=== PATIENT | female | born 1970 | race Caucasian/White ===

== ENCOUNTER → 2018-07-24 | Outpatient (CLI) | payer BC ==
--- NOTE | 2018-07-24 13:52 | US ---
EXAMINATION TYPE: US pelvis complete transvag DATE OF EXAM: 07/24/2018 COMPARISON: NONE CLINICAL HISTORY: Dysfunctional uterine bleeding N93.8. DUB TECHNIQUE: Transvaginal (TV) and Transabdominal (TA) . Transabdominal sonographic images of the pel vis were acquired. Transvaginal sonographic images were medically necessary to better assess the fol lowing anatomy: uterus and ovaries Date of LMP: 07/24/18 EXAM MEASUREMENTS: Uterus: 8.4 x 4.4 x 4.8 cm Endometrial Stripe: 1.1 cm Right Ovary: unable to visualize Left Ovary: 3.3 x 1.9 x 2.7 cm 1. Uterus: Anteverted heterogeneous. multiple Nabothian cysts. Hypoechoic areas noted (fibroids) a t fundus = 0.9 x 1.3 x 1.0cm and posterior body = 1.4 x 1.2 x 1.0cm 2. Endometrium: appears wnl 3. Right Ovary: Obscured by overlying bowel gas 4. Left Ovary: dominant follicle = 1.6cm 5. Bilateral Adnexa: appears wnl 6. Posterior cul-de-sac: appears wnl IMPRESSION: 1. Leiomyomatous change of the uterus. 2. Dominant follicle left ovary.
== END ==
LOC: RADUSWWP 13:06
PROVIDERS: ATTEND Specialist
DX: D25.9 Leiomyoma of uterus, unspecified (principal)
CPT/HCPCS: 76830; 76856

== ENCOUNTER → 2018-08-05 | Outpatient (CLI) | payer BC ==
--- NOTE | 2018-08-06 09:30 | MM ---
Reason for exam: screening (asymptomatic). Last mammogram was performed 1 year and 1 month ago. History: Benign excisional biopsy of the left breast, 2012. Physical Findings: A clinical breast exam by your physician is recommended on an annual basis and results should be correlated with mammographic findings. MG 3D Screening Mammo W/Cad Bilateral CC and MLO view(s) were taken. Prior study comparison: July 17, 2017, mammogram, performed at [facility]. June 17, 2015, mammogram, performed at [facility]. October 20, 2014, mammogram, performed at [facility]. April 06, 2014, mammogram, performed at [facility]. March 31, 2014, mammogram, performed at [facility]. The breast tissue is extremely dense which could obscure a lesion on mammography. Finding #1: There are circumscribed round masses up to 37mm in the posterior middle position of both breasts, greater in the left breast in size and number. Finding #2: There are typically benign round calcifications in both breasts. New finding and increase in size since July 17, 2017. ASSESSMENT: Incomplete: need additional imaging evaluation, BI-RAD 0 RECOMMENDATION: Ultrasound of both breasts. [facility] will attempt to contact patient to return for ultrasound.
== END ==
LOC: RADMAMWWP 09:06
PROVIDERS: ATTEND Specialist
DX: Z12.31 Encounter for screening mammogram for malignant neoplasm of breast (principal)
CPT/HCPCS: 77063; 77067

== ENCOUNTER → 2018-08-08 | Outpatient (CLI) | payer BC ==
--- NOTE | 2018-08-08 09:40 | USB ---
Reason for exam: clinical finding. History: Benign excisional biopsy of the left breast, 2012. Indicated problem(s): palpable abnormality in both breasts. Physical Findings: Nurse Summary: left 3cm moves, right 1 cm moves (nurse dw). US Breast Workup [facility] Right limited breast ultrasound including focal area of concern, retroareolar and axilla demonstrates multiple thin walled cysts visualized. Overall fibrocystic changes. Left limited breast ultrasound including focal area of concern, retroareolar and axilla demonstrates multiple thin walled cysts visualized. Overall fibrocystic changes. These results were verbally communicated with the patient and result sheet given to the patient on 07/2818. ASSESSMENT: Benign, BI-RAD 2 RECOMMENDATION: Return to routine screening mammogram schedule for both breasts.
== END | disposition home or self-care (01) ==
LOC: RADUSWWP 08:23
PROVIDERS: ATTEND Specialist
DX: R92.8 Other abnormal and inconclusive findings on diagnostic imaging of breast (principal)

== ENCOUNTER → 2018-08-09 | Outpatient (CLI) | payer BC ==
--- NOTE | 2018-08-09 21:15 | BD ---
EXAMINATION TYPE: Axial Bone Density DATE OF EXAM: 08/09/2018 COMPARISON: NONE CLINICAL HISTORY: 47 YR OLD FEMALE....ICD-10 CODE: Z13.9 OSTEOPOROSIS SCREENING : DENIES Height: 66 Weight: 181 FRAX RISK QUESTIONS: 3. Menopause before 45: NA....LMP 2 WEEKS AGO ADRENAL INSUFFICIENCY RISK FACTORS HISTORY OF: HX OF LT WRIST FX History of Wrist Fracture: LT...IN HER TEENS Active: YES Postmenopausal woman: LMP 2 WEEKS AGO Adrenal Insufficiency: ADRENAL FATIGUE MEDICATIONS: Additional Medications: ZOLOFT, VIT D, MULTIVITAMIN Additional History: NOTHING ADDITIONAL TO ADD EXAM MEASUREMENTS: Bone mineral densitometry was performed using the [employer] System. Bone mineral density as measured about the Lumbar spine is: ----- L1-L4(G/cm2): 1.354 T Score Values are as follows: ----- L1: 0.6 ----- L2: 1.2 ----- L3: 1.7 ----- L4: 1.8 ----- L1-L4: 1.4 Bone mineral density BASELINE STUDY Bone mineral density about the R hip (g/cm2): 1.089 Bone mineral density about the L hip (g/cm2): 1.055 T Score values are as follows: -----R Neck: 0.2 -----L Neck: 0.1 -----R Total: 0.6 -----L Total: 0.4 Bone mineral density IS A BASELINE STUDY FRAX%s: THERE IS A 3.0% CHANCE FOR A MAJOR OSTEOPOROTIC FX AND A 0.0% FOR HIP FX....PROBABILITY OF FX IN 10 YRS TIME IMPRESSION: Normal (Values between +1 and -1 indicate normal bone mass). Consider repeating this study in 5 year s or sooner if there is some new clinical indication. NOTE: T-SCORE=SD OF THE YOUNG ADULT MEAN.
== END ==
LOC: RADMAMWWP 07:20
PROVIDERS: ATTEND Specialist
DX: Z13.820 Encounter for screening for osteoporosis (principal)
CPT/HCPCS: 77080

== ENCOUNTER → 2019-06-27 | Outpatient (CLI) | payer BC ==
--- NOTE | 2019-06-27 08:54 | NM ---
EXAMINATION TYPE: NM hepatobiliary w CCK DATE OF EXAM: 06/27/2019 COMPARISON: NONE HISTORY: Right upper quadrant abdominal pain TECHNIQUE: After the intravenous administration of 4.7 mCi Tc 99m Mebrofenin hepatobiliary scintigrap hy is performed. Immediate images post injection. FINDINGS: There is satisfactory initial accumulation of tracer by the liver. The gallbladder is visualized wit hin 36 minutes. The small bowel activity is noted within 10 minutes. At one hour CCK was administer ed, patient was injected with 1.5 mcg of Kinevac, and gallbladder ejection fraction is calculated at 86 %, abnormally elevated. Therefore there is no scintigraphic evidence of cystic or common bile ilir t obstruction to suggest acute cholecystitis or gallbladder dyskinesia. IMPRESSION: Biliary hyperkinesia. Abnormally elevated biliary ejection fraction of 86%.
== END | disposition home or self-care (01) ==
LOC: RADNMMAIN 06:47
PROVIDERS: ATTEND Family Medicine
DX: R94.5 Abnormal results of liver function studies (principal); R10.11 Right upper quadrant pain
CPT/HCPCS: 78227; A9537; J2805

== ENCOUNTER → 2020-03-11 | Outpatient (CLI) | payer BC ==
--- NOTE | 2020-03-12 09:08 | MM ---
Reason for exam: screening (asymptomatic). Last mammogram was performed 1 year and 7 months ago. History: Benign excisional biopsy of the left breast, 2013. Taking progesterone beginning at age 49. Physical Findings: A clinical breast exam by your physician is recommended on an annual basis and results should be correlated with mammographic findings. MG 3D Screening Mammo W/Cad Bilateral CC and MLO view(s) were taken. Prior study comparison: August 05, 2018, bilateral MG 3d screening mammo w/cad. July 17, 2017, mammogram, performed at [facility]. The breast tissue is extremely dense which could obscure a lesion on mammography. Finding #1: There is a typically benign equal density (isodense), circumscribed, partially obscured round mass located 6 cm from the nipple. Finding #2: There are typically benign round, diffuse/scattered calcifications in the right breast. New finding since August 05, 2018 and July 17, 2017. ASSESSMENT: Incomplete: need additional imaging evaluation, BI-RAD 0 RECOMMENDATION: Special view mammogram of the right breast. If lesion persists on supplemental views, image directed ultrasound is recommended. [facility] will attempt to contact patient to return for supplemental views and ultrasound if indicated.
== END | disposition home or self-care (01) ==
LOC: RADMAMWWP 07:02
PROVIDERS: ATTEND Specialist
DX: Z12.31 Encounter for screening mammogram for malignant neoplasm of breast (principal)
CPT/HCPCS: 77063; 77067

== ENCOUNTER → 2020-03-16 | Outpatient (CLI) | payer BC ==
--- NOTE | 2020-03-16 10:35 | MM ---
Reason for exam: additional evaluation requested from abnormal screening. Last mammogram was performed less than 1 month ago. History: Benign excisional biopsy of the left breast, 2012. Taking progesterone beginning at age 49. Physical Findings: Nurse Summary: 1cm nodule in the right breast at 12 o'clock and a 2cm nodule in the left breast at 2 o'clock (nurse mj). MG 3D Work Up W/Cad RT LM and spot compression MLO view(s) were taken of the right breast. Prior study comparison: March 11, 2020, bilateral MG 3d screening mammo w/cad. August 05, 2018, bilateral MG 3d screening mammo w/cad. The breast tissue is extremely dense which could obscure a lesion on mammography. Persistent density on compression. This finding is changed when compared with previous exams. These results were verbally communicated with the patient and result sheet given to the patient on 03/16/20. ASSESSMENT: Incomplete: need additional imaging evaluation, BI-RAD 0 RECOMMENDATION: Ultrasound of the right breast.
--- NOTE | 2020-03-16 10:38 | USB ---
Reason for exam: additional evaluation requested from abnormal screening. History: Benign excisional biopsy of the left breast, 2012. Taking progesterone beginning at age 49. US Breast Workup Limited [facility] Right limited breast ultrasound including focal area of concern, retroareolar and axilla demonstrates a 11 x 6 x 7mm cystic cluster at 7 o'clock, a 35 x 8 x 17mm cystic cluster at 10 o'clock and a 7 x 4 x 7mm cystic lesion at 12 o'clock BB. Left limited breast ultrasound including focal area of concern, retroareolar and axilla demonstrates a 28 x 13 x 27mm cystic cluster at 1 o'clock and a 13 x 17 x 31mm cystic cluster at 2 o'clock BB. Innumerable cystic areas visualized. These results were verbally communicated with the patient and result sheet given to the patient on 03/16/20. ASSESSMENT: Probably benign, BI-RAD 3 RECOMMENDATION: Return to routine screening mammogram schedule for both breasts. Manage patient on a clinical basis.
== END | disposition home or self-care (01) ==
LOC: RADMAMWWP 07:49
PROVIDERS: ATTEND Specialist
DX: N60.12 Diffuse cystic mastopathy of left breast (principal); N60.11 Diffuse cystic mastopathy of right breast; R92.8 Other abnormal and inconclusive findings on diagnostic imaging of breast
CPT/HCPCS: 77061; 77065

== ENCOUNTER → 2021-06-17 | Outpatient (CLI) | payer BC ==
--- NOTE | 2021-06-20 13:06 | MM ---
Reason for exam: screening (asymptomatic). Last mammogram was performed 1 year and 3 months ago. History: Benign excisional biopsy of the left breast, 2013. Taking progesterone for 1 year beginning at age 49. Physical Findings: A clinical breast exam by your physician is recommended on an annual basis and results should be correlated with mammographic findings. MG 3D Screening Mammo W/Cad Bilateral CC and MLO view(s) were taken. Prior study comparison: March 16, 2020, right breast MG 3d work up w/cad RT. March 11, 2020, bilateral MG 3d screening mammo w/cad. The breast tissue is heterogeneously dense. This may lower the sensitivity of mammography. Stable regional calcifications right breast. Fluctuating circumscribed masses in the bilateral breasts. Cysts are suspected. Ultrasound evaluation recommended. ASSESSMENT: Incomplete: need additional imaging evaluation, BI-RAD 0 RECOMMENDATION: Ultrasound of both breasts. [facility] will attempt to contact patient to return for ultrasound.
== END | disposition home or self-care (01) ==
LOC: RADMAMWWP 10:10
PROVIDERS: ATTEND Family Medicine
DX: Z12.31 Encounter for screening mammogram for malignant neoplasm of breast (principal)
CPT/HCPCS: 77063; 77067

== ENCOUNTER → 2021-06-21 | Outpatient (CLI) | payer BC ==
--- NOTE | 2021-06-21 09:30 | USB ---
Reason for exam: additional evaluation requested from abnormal screening. History: Benign excisional biopsy of the left breast, 2012. Taking progesterone for 1 year beginning at age 49. Physical Findings: Nurse did not find any significant physical abnormalities on exam. US Breast Workup [facility] Right complete breast ultrasound includes all four quadrants, the retroareolar region and axilla. Finding demonstrates a 0.7 x 0.6 x 0.4cm cystic lesion at 2 o'clock, a 0.7 x 0.5 x 0.2cm cystic lesion at 6 o'clock, a 0.7 x 0.7 x 0.4cm cystic lesion at 7 o'clock and a 1.6 x 1.5 x 0.8cm cystic lesion at 9 o'clock. Left complete breast ultrasound includes all four quadrants, the retroareolar region and axilla. Finding demonstrates a 3.3 x 2.9 x 1.3cm cystic lesion at 1 o'clock, a 0.9 x 1.1 x 0.8cm cystic lesion at 1 o'clock and a 0.9 x 1.0 x 1.0cm cystic cluster at 4 o'clock. Bilateral whole breast scanned. Multiple cysts and dilated ducts. These results were verbally communicated with the patient and result sheet given to the patient on 06/21/21. ASSESSMENT: Benign, BI-RAD 2 RECOMMENDATION: Follow-up diagnostic mammogram of both breasts in 1 year.
== END | disposition home or self-care (01) ==
LOC: RADUSWWP 08:14
PROVIDERS: ATTEND Family Medicine
DX: R92.8 Other abnormal and inconclusive findings on diagnostic imaging of breast (principal)

== ENCOUNTER → 2022-06-22 | Outpatient (CLI) | payer BC ==
--- NOTE | 2022-06-22 13:35 | MM ---
Reason for Exam: Additional evaluation requested from prior study. Last screening mammogram was performed 12 month(s) ago. Patient History: Menarche at age 11. First Full-Term at age 27. Currently using Progesterone, beginning at age 49 for 3 years. 2012, Benign Excisional Biopsy on the left side. Last menstrual period: 06/12/2022 Risk Values: Faina 5 year model risk: 1.4%. NCI Lifetime model risk: 11.0%. Prior Study Comparison: 08/05/2018 Bilateral Screening Mammogram, [facility]. 08/08/2018 Bilateral Diagnostic Ultrasound, [facility]. 03/11/2020 Bilateral Screening Mammogram, [facility]. 03/16/2020 Right Diagnostic Mammogram, [facility]. 03/16/2020 Bilateral Diagnostic Ultrasound, [facility]. 06/17/2021 Bilateral Screening Mammogram, [facility]. Tissue Density: The breast tissue is heterogeneously dense. This may lower the sensitivity of mammography. Findings: Analyzed By CAD. Redemonstrated is extensive bilateral nodularity. Multiple circumscribed masses have fluctuated in size in the interval. Regional and scattered bilateral punctate calcifications are similar. Given the dense tissues and extensive nodularity, further ultrasound evaluation is recommended. Overall Assessment: Incomplete: need additional imaging evaluation, BI-RAD 0 Management: Diagnostic Breast Ultrasound of both breasts. Electronically signed and approved by: Clyde Cha M.D. Radiologist
--- NOTE | 2022-06-22 15:48 | USB ---
Reason for Exam: Follow-up at short interval from prior study. Patient History: Menarche at age 11. First Full-Term at age 27. Currently using Progesterone, beginning at age 49 for 3 years. 2013, Benign Excisional Biopsy on the left side. Risk Values: Faina 5 year model risk: 1.4%. NCI Lifetime model risk: 11.0%. Prior Study Comparison: 03/11/2020 Bilateral Screening Mammogram, [facility]. 03/16/2020 Right Diagnostic Mammogram, [facility]. 06/17/2021 Bilateral Screening Mammogram, [facility]. Findings: The whole breast of both breasts, the axilla of both breasts and the retroareolar of both breasts were scanned. A complete US of all four quadrants of both breasts, axilla, and retro-areolar region were reviewed. Right: Multiple cysts are present appearing sizes, largest at 10:00 measuring 1.9 cm. Additional cyst cluster measuring 1.4 cm at 7:00. No suspicious solid lesion or axillary lymphadenopathy. Left: Scattered small cysts are present throughout the breast. Largest at 1:00, 1 cm from the nipple measuring 2.5 cm. At the 1:00 position, 4 cm from the nipple, there is a 10 x 8 x 7 mm oval hypoechoic lesion with through-transmission and no internal vascularity. Possible debris-filled cyst. Six-month follow-up recommended. At the 4:00 position, 4 cm from the nipple, there is a cyst cluster measuring 8mm, smaller from 1 cm, previously. Overall Assessment: Probably benign, BI-RAD 3 Management: Diagnostic Breast Ultrasound of the left breast in 6 months. For the 1:00 1 cm oval lesion, possibly debris-filled cyst. Results were given to the patient verbally at the time of exam. Electronically signed and approved by: Clyde Cha M.D. Radiologist
== END | disposition home or self-care (01) ==
LOC: RADMAMWWP 13:02
PROVIDERS: ATTEND Family Medicine
DX: R92.8 Other abnormal and inconclusive findings on diagnostic imaging of breast (principal); Z98.890 Other specified postprocedural states
CPT/HCPCS: 77062; 77066

== ENCOUNTER → 2022-12-21 | Outpatient (CLI) | payer BC ==
--- NOTE | 2022-12-21 09:33 | USB ---
Reason for Exam: Follow-up at short interval from prior study. Patient History: Menarche at age 11. First Full-Term at age 27. Currently using Progesterone, beginning at age 49 for 3 years. 2013, Benign Excisional Biopsy on the left side. Risk Values: Faina 5 year model risk: 1.5%. NCI Lifetime model risk: 10.8%. Technique: Method: Targeted. Prior Study Comparison: 03/16/2020 Right Diagnostic Mammogram, [facility]. 06/17/2021 Bilateral Screening Mammogram, [facility]. 06/22/2022 Bilateral MG 3D diag mammo w/cad [facility], [facility]. Findings: The upper section of the breast of the left breast, the axilla of the left breast and the retroareolar of the left breast were scanned. Targeted ultrasound 1:00 left breast including scanning of the subareolar region and axilla. Redemonstrated 9 x 9 x 8 mm cystic lesion, 4 cm from the nipple. Either clumped up debris or internal soft tissue nodularity remains similar. Ongoing short interval follow-up recommended. Overall Assessment: Probably benign, BI-RAD 3 Management: Diagnostic Mammogram of both breasts in 6 months. Diagnostic Breast Ultrasound of the left breast in 6 months. Bilateral diagnostic mammograms in 6 months in time for the patient's annual exam. Targeted 1:00 left breast ultrasound (total 1 year follow-up). Patient should continue monthly self breast exams. Results were given to the patient verbally at the time of exam. Electronically signed and approved by: Clyde Cha M.D. Radiologist
== END | disposition home or self-care (01) ==
LOC: RADUSWWP 08:32
PROVIDERS: ATTEND Family Medicine
DX: N63.20 Unspecified lump in the left breast, unspecified quadrant (principal)

== ENCOUNTER → 2023-05-17 | Outpatient (CLI) | payer BC ==
--- NOTE | 2023-05-18 09:01 | US ---
EXAMINATION TYPE: US pelvis complete transvag DATE OF EXAM: 05/17/2023 COMPARISON: 08/16/22 CLINICAL INDICATION: Female, 52 years old with history of E06.3 E03.9 E27.40 E61.7 E63.0 E72.11 F51.0 4; abnormal bleeding in between periods. . No pelvic surgeries. Dr. ruiz endometrium evaluated TECHNIQUE: . Transabdominal sonographic images of the pelvis were acquired. Transvaginal sonographi c images were medically necessary to better assess the following anatomy: Endometrium Date of LMP: 05/04/23 EXAM MEASUREMENTS: Uterus: 8.6 x 5.2 x 4.4 cm Endometrial Stripe: 1.3 cm Right Ovary: 2.4 x 1.6 x 1.9 cm Left Ovary: Not seen 1. Uterus: Anteverted. Hypoechoic area seen pushing into endometrium measuring 1.4 x 1.3 x 1.1cm , left posterior fundus. Previously measuring 1.4 cm. Small amount of fluid within the endocervical ca nal. 2. Endometrium: Upper limits of normal in thickness. 3. Right Ovary: Cystic area seen measuring 1.3 x 0.7 x 1.4cm, likely dominant follicle/functional cy st. 4. Left Ovary: Not seen due to bowel gas 5. Bilateral Adnexa: wnl 6. Posterior cul-de-sac: wnl IMPRESSION: 1. An intramural and partially submucosal fibroid along the left posterior uterine fundus measuring 1 .4 cm is unchanged. This continues to exert some mass effect on to the endometrium. 2. Endometrial stripe measuring 1.3 cm thick, upper limits of normal. This should correspond to the s ecretory phase of the menstrual cycle. 3. A 1.4 cm dominant follicle or functional cyst of the right ovary. 4. Unable to visualize the left ovary.
== END | disposition home or self-care (01) ==
LOC: RADUSWWP 15:52
PROVIDERS: ATTEND Family Medicine
DX: E06.3 Autoimmune thyroiditis (principal); E03.9 Hypothyroidism, unspecified; E27.40 Unspecified adrenocortical insufficiency; E61.7 Deficiency of multiple nutrient elements; E63.0 Essential fatty acid [EFA] deficiency; E72.11 Homocystinuria; F51.04 Psychophysiologic insomnia; G31.84 Mild cognitive impairment of uncertain or unknown etiology; G43.909 Migraine, unspecified, not intractable, without status migrainosus; N60.19 Diffuse cystic mastopathy of unspecified breast; D25.0 Submucous leiomyoma of uterus; D50.9 Iron deficiency anemia, unspecified; N83.201 Unspecified ovarian cyst, right side; D25.1 Intramural leiomyoma of uterus; N95.9 Unspecified menopausal and perimenopausal disorder; Z91.018 Allergy to other foods; R53.82 Chronic fatigue, unspecified
CPT/HCPCS: 76830; 76856

== ENCOUNTER → 2023-08-30 | Outpatient (CLI) | payer BC ==
--- NOTE | 2023-08-30 08:07 | MM ---
Reason for Exam: Follow-up at short interval from prior study. Last mammogram was performed 1 year(s) and 2 month(s) ago. Patient History: Menarche at age 11. First Full-Term at age 27. Currently using Progesterone, beginning at age 49 for 3 years. 2013, Benign Excisional Biopsy on the left side. Risk Values: Faina 5 year model risk: 1.5%. NCI Lifetime model risk: 10.8%. Tissue Density: The breasts are heterogeneously dense, which may obscure small masses. Findings: Analyzed By CAD. Left breast 1:00 lesion 4 cm the nipple is less conspicuous on today's exam on mammography. Attention on same day ultrasound. No new suspicious masses, calcifications or distortions. Overall Assessment: Incomplete: need additional imaging evaluation, BI-RAD 0 Management: Diagnostic Breast Ultrasound of the left breast. Results were given to the patient verbally at the time of exam. Patient should continue monthly self-breast exams. A clinical breast exam by your physician is recommended on an annual basis. This exam should not preclude additional follow-up of suspicious palpable abnormalities. Note on Faina scores and lifetime risk: 1. A Faina score greater than 3% is considered moderate risk. If this is the case, consider specialist referral to assess eligibility for a risk reducing agent. 2. If overall lifetime risk for the development of breast cancer is 20% or higher, the patient may qualify for future screening with alternating mammogram and breast MRI. Electronically signed and approved by: Richard Shipman DO
--- NOTE | 2023-08-30 08:57 | USB ---
Reason for Exam: Follow-up at short interval from prior study. Patient History: Menarche at age 11. First Full-Term at age 27. Currently using Progesterone, beginning at age 49 for 3 years. 2013, Benign Excisional Biopsy on the left side. Risk Values: Faina 5 year model risk: 1.5%. NCI Lifetime model risk: 10.8%. Technique: Method: Targeted. Prior Study Comparison: 03/16/2020 Right Diagnostic Mammogram, [facility]. 06/17/2021 Bilateral Screening Mammogram, [facility]. 06/22/2022 Bilateral MG 3D diag mammo w/cad [facility], [facility]. 12/21/2022 Left US breast limited LT, [facility]. Findings: The upper outer quadrant of the left breast was scanned. Technique utilized:US breast limited LT Image; Ultrasound imaging of: Area of concern, retroareolar region and axilla. Similar-appearing complicated cyst at 1:00 4 cm from the nipple. Measuring 8 x 8 x 7 mm. No evidence for organizing fluid collection or mass. Overall Assessment: Benign, BI-RAD 2 Management: Screening Mammogram of both breasts in 1 year. A clinical breast exam by your physician is recommended on an annual basis and results should be correlated with mammographic findings. This exam should not preclude additional follow-up of suspicious palpable abnormalities. Results were given to the patient verbally at the time of exam. Electronically signed and approved by: Richard Shipman DO
== END | disposition home or self-care (01) ==
LOC: RADMAMWWP 07:32
PROVIDERS: ATTEND Family Medicine
DX: N60.02 Solitary cyst of left breast (principal); R92.333 Mammographic heterogeneous density, bilateral breasts
CPT/HCPCS: 77062; 77066

== ENCOUNTER → 2024-10-14 | Outpatient (CLI) | payer BC ==
--- NOTE | 2024-10-14 07:58 | MM ---
Reason for Exam: Screening (asymptomatic). Last mammogram was performed 1 year(s) and 2 month(s) ago. Patient History: Menarche at age 11. First Full-Term at age 27. Currently using Progesterone, beginning at age 49 for 3 years. 2013, Benign Excisional Biopsy on the left side. Risk Values: Faina 5 year model risk: 1.6%. NCI Lifetime model risk: 10.7%. Prior Study Comparison: 06/17/2021 Bilateral Screening Mammogram, [facility]. 06/22/2022 Bilateral MG 3D diag mammo w/cad [facility], [facility]. 08/30/2023 Bilateral MG 3D diag mammo w/cad [facility], [facility]. Tissue Density: The breasts are heterogeneously dense, which may obscure small masses. Findings: Analyzed By CAD. Right breast: Redemonstration of benign masses. There is no suspicious group of microcalcifications or new suspicious mass. Benign-appearing calcifications right breast. Left breast: Redemonstration of benign masses. There is no suspicious group of microcalcifications or new suspicious mass. Benign-appearing calcifications left breast. Overall Assessment: Benign, BI-RAD 2 Management: Screening Mammogram of both breasts in [address] [facility] will attempt to contact patient to return for supplemental views and ultrasound if indicated. Patient should continue monthly self-breast exams. A clinical breast exam by your physician is recommended on an annual basis. This exam should not preclude additional follow-up of suspicious palpable abnormalities. Note on Faina scores and lifetime risk: 1. A Faina score greater than 3% is considered moderate risk. If this is the case, consider specialist referral to assess eligibility for a risk reducing agent. 2. If overall lifetime risk for the development of breast cancer is 20% or higher, the patient may qualify for future screening with alternating mammogram and breast MRI. [facility], , 10/14/2024 7:55 AM. Electronically signed and approved by: Richard Shipman DO
== END | disposition home or self-care (01) ==
LOC: RADMAMWWP 07:23
PROVIDERS: ATTEND Obstetrics & Gynecology
DX: Z12.31 Encounter for screening mammogram for malignant neoplasm of breast (principal); R92.333 Mammographic heterogeneous density, bilateral breasts
CPT/HCPCS: 77063; 77067